=== PATIENT | female | born 1960 | race Caucasian/White ===

== ENCOUNTER 2021-07-23 16:36 | Emergency (ER) | payer OTHER, SELFPAY ==
[2021-07-23 16:52] VITALS: BP 147/65; PULSE 79; RESP 16; TEMP 36.2; O2SAT 97; BMI 27.3
--- NOTE | 2021-07-23 16:56 | DI.RAD.S_ITS ---
PROCEDURE: XR FOOT RT MIN 3V INDICATIONS: bruising and swelling of R great toe TECHNIQUE: 3 views of the foot were acquired. COMPARISON: None. FINDINGS: Bones: Comminuted fracture of the 1st proximal phalange. Fracture lucencies extend into the DIP joint.. Soft tissues: No tibiotalar joint effusion. Achilles tendon appears normal. IMPRESSION: Comminuted, intra-articular 1st proximal phalange fracture. Dictated by: Kristal Stevens MD, PhD on 07/23/2021 at 17:14 Approved by: Kristal Stevens MD, PhD on 07/23/2021 at 17:15
--- NOTE | 2021-07-23 19:39 | ED.LOWEXIN ---
HPI - Extremity Injury (Lower) General Chief Complaint: Extremity Injury, Lower Stated Complaint: Great toe on right foot injury x1 day Time Seen by Provider: 07/23/21 19:30 Source: patient Mode of arrival: Ambulatory History of Present Illness HPI Narrative: 60-year-old female here for evaluation of right great toe pain and discoloration and discomfort. She states yesterday she kicked an object. Sustained an injury afterwards. Has had pain upon walking since then. Has not tried anything for symptoms prior to arrival Related Data Previous Rx's Medication Instructions Recorded hydrocodone 5 mg-acetaminophen 325 1 tab PO Q4-6H PRN #14 tab 07/23/21 mg tablet Review of Systems Musculoskeletal Comments: Pain around right great toe Integumentary/Breasts Comments: Bruising around the right great toe Neurologic Neurologic: Reports system reviewed and no additional complaints, except as documented Patient History Medical History Healthy adult Social History (Updated 07/24/21 @ 01:57 by Kwabena Wu DO) marital status: lives independently: Yes Exam Initial Vital Signs Initial Vital Signs: Vital Signs Temperature 97.1 F L 07/23/21 16:52 Pulse Rate 79 07/23/21 16:52 Respiratory Rate 16 07/23/21 16:52 Blood Pressure 147/65 H 07/23/21 16:52 Pulse Oximetry 97 07/23/21 16:52 Cardio Pulses: dorsalis pedis present on the right Skin Other: Bruising located from the MTP joint distal to the right great toe and some bruising along the 2nd toe as well. There is no breaks in the skin. Neuro Sensory Exam: no sensory deficits noted Extrem Other: Patient with discomfort along the right great toe. The rest of her right foot exam unremarkable Psych Appearance: grossly normal and well kempt Procedures Orthopedic Splinting/Casting Injury #1: Side: right Lower Extremity Injury Location: toe Lower Extremity Immobilizer: post-op shoe Post splinting neuro exam: intact Post splinting vascular exam: intact Placed by: Nursing Course Orders Ordered: ED Orders 07/23/21 16:56 XR foot RT min 3V Stat Vital Signs Vital signs: Vital Signs - 8 hr 07/23/21 20:01 Pulse Rate 65 Respiratory Rate 18 Blood Pressure 147/69 H Pulse Oximetry 99 MDM - Extremity Injury (Lower) MDM Narrative Medical decision making narrative: X-ray shows fracture of the proximal aspect of the right great toe. No breaks in the skin. She has bruising over the area. Consistent with her stated injury. Will provide orthopedic shoe. We also discussed jose raul taping. She was given return precautions and follow-up instructions. She expressed understanding and agreement. Discharge Plan Departure Patient Disposition: Home Clinical Impression: Fracture of toe of right foot Instructions: Toe Fracture, How to Jose Raul Tape Activity Restrictions/Additional Instructions: I do recommend that you keep your foot elevated. You can also keep ice over the area. He can take Tylenol and ibuprofen for discomfort. The orthopedic she was for your comfort with walking. Contact your primary doctor for long-term work related restrictions. Return to the emergency department for any new symptoms. Prescriptions: New hydrocodone-acetaminophen 5-325 mg tablet 1 tab PO Q4-6H PRN (Reason: pain) Qty: 14 0RF Referrals: Zuhair Jane MD [Primary Care Provider] - Stand Alone Forms: Work Release Note
[2021-07-23 20:01] VITALS: BP 147/69; PULSE 65; RESP 18; O2SAT 99
== END 2021-07-23 20:03 | disposition home or self-care (01) ==
PROVIDERS: Emergency Provider Emergency Medicine; PCP Internal Medicine Rheumatology
DX: S92.411A Displaced fracture of proximal phalanx of right great toe, initial encounter for closed fracture (principal); W22.8XXA Striking against or struck by other objects, initial encounter
CPT/HCPCS: 73630; 99283

== ENCOUNTER 2022-02-17 17:15 | Emergency (ER) | payer OTHER, SELFPAY ==
[2022-02-17 17:28] VITALS: BP 163/74; PULSE 64; RESP 18; TEMP 37.1; O2SAT 96
--- NOTE | 2022-02-17 17:40 | DI.CT.S_ITS ---
PROCEDURE: CT HEAD/BRAIN WO CON INDICATIONS: headache/dizziness/nausea TECHNIQUE: Noncontrast 4.5 mm thick angled axial sections acquired from the foramen magnum to the vertex, with coronal and sagittal reformats. For radiation dose reduction, the following was used: automated exposure control, adjustment of mA and/or kV according to patient size. COMPARISON: None. FINDINGS: Image quality: Excellent. CSF spaces: Basal cisterns are patent. No extra-axial fluid collections. Ventricles are normal in size and shape. Brain: No midline shift. No intracranial masses or hemorrhage. Jiang-white matter interface is normal. Skull and face: Calvarium and visualized facial bones are intact, without suspicious lesions. Sinuses: Visualized sinuses and mastoids are clear. IMPRESSION: No acute intracranial abnormality. Dictated by: Marcin Kaur M.D. on 02/17/2022 at 18:02 Approved by: Marcin Kaur M.D. on 02/17/2022 at 18:03
[2022-02-17 18:06] LABS: COVID19 -Nasal RAPID Negative (Negative)
--- NOTE | 2022-02-17 19:44 | ED.HA ---
HPI - Headache General Chief Complaint: Headache Stated Complaint: SEVERE HEADACHE NAUSEA WEAKNESS Time Seen by Provider: 02/17/22 19:42 Mode of arrival: Ambulatory History of Present Illness HPI Narrative: 61-year-old female nonsmoker with history of migraine headaches presents with her in the chief complaint of gradually worsening generalized headache over the course of the day. She states that it has no obvious provocation or radiation but seems to be made better in a dark room. She denies any blurred vision, trouble with speech or extremity numbness, tingling or weakness. She denies any recent trauma or injury. She does not take blood thinners and denies fever, chills or neck pain. She is had no recent dietary or medication change Related Data Previous Rx's Medication Instructions Recorded hydrocodone 5 mg-acetaminophen 325 1 tab PO Q4-6H PRN pain #14 tabs 12/28/21 mg tablet Allergies Allergy/AdvReac Type Severity Reaction Status Date / Time No Known Drug Allergies Allergy Verified 02/17/22 17:30 Patient History Medical History Healthy adult Social History marital status: lives independently: Yes Exam Narrative Exam Narrative: GENERAL: [61] year old patient appears stated age. Well-developed patient, in mild distress. Resting in a dark room rubbing her forehead HEAD: Atraumatic. Normocephalic. No pain over temples EYES: Pupils equal round and reactive. Extraocular motions intact. No scleral icterus. No injection or drainage. ENT: Nose without bleeding, purulent drainage. Throat without erythema, tonsillar hypertrophy or exudate. Airway patent. NECK: Trachea midline. Non tender CARDIOVASCULAR: Regular rate and rhythm without murmurs, gallops, or rubs. RESPIRATORY: Clear to auscultation. Breath sounds equal bilaterally. No wheezes, rales, or rhonchi. GASTROINTESTINAL: Abdomen soft, non-tender, nondistended. EXTREMITIES: No edema or joint tenderness. BACK: Nontender without deformity or crepitance. No flank tenderness. NEURO: AOx3. SKIN: No rash or erythema of visible areas NIH Stroke Scale 1a. LOC: Patient is alert and keenly responsive (0) 1b. LOC Questions: Patient answers both LOC questions accurately (0) 1c. LOC Commands: Patient performs both tasks correctly (0) 2. Best Gaze: Normal (0) 3. Visual: No visual loss (0) 4. Facial palsy: Normal symmetrical movements (0) 5. Motor arm: No drift (0) 6. Motor leg: No drift (0) 7. Limb ataxia: Absent (0) 8. Sensory: Normal (0) 9. Best language: No aphasia; normal (0) 10. Dysarthria: Normal (0) 11. Extinction and inattention: No abnormality (0) NIHSS: 0 Initial Vital Signs Initial Vital Signs: Vital Signs Temperature 98.8 F 02/17/22 17:28 Pulse Rate 64 02/17/22 17:28 Respiratory Rate 18 02/17/22 17:28 Blood Pressure 163/74 H 02/17/22 17:28 Pulse Oximetry 96 02/17/22 17:28 Oxygen Delivery Method 02/17/22 17:28 Course Orders Ordered: Discontinued Medications Diphenhydramine HCl (Diphenhydramine 50 Mg/Ml Vial) 25 mg IV NOW ONE Stop: 02/17/22 20:47 Last Admin: 02/17/22 21:03 Dose: 25 mg Documented By: EB Sodium Chloride (Normal Saline 0.9%) 1,000 mls @ 1,000 mls/hr IV BOLUS ONE Stop: 02/17/22 21:45 Last Admin: 02/17/22 21:02 Dose: 1,000 mls/hr Documented By: EB Ketorolac Tromethamine (Ketorolac 30 Mg/Ml Vial) 15 mg IV NOW ONE Stop: 02/17/22 20:47 Last Admin: 02/17/22 21:02 Dose: 15 mg Documented By: EB Metoclopramide HCl (Metoclopramide 10 Mg/2 Ml Inj) 10 mg IV NOW ONE Stop: 02/17/22 20:47 Last Admin: 02/17/22 21:03 Dose: 10 mg Documented By: EB Ondansetron HCl (Ondansetron 4 Mg Odt Prepack) 1 bottle MISC SEEINSTR ONE Stop: 02/17/22 22:12 Last Admin: 02/17/22 22:33 Dose: 1 bottle Documented By: AP Reevaluation(s) Reevaluation #1: Patient has significant improvement symptoms after above-stated therapies Vital Signs Vital signs: Vital Signs - 8 hr 02/17/22 22:45 Pulse Rate 76 Respiratory Rate 18 Blood Pressure 123/76 Pulse Oximetry 98 Oxygen Delivery Method Room Air MDM - Headache Lab Data Labs: Lab Results 02/17/22 Range/Units 17:40 SARS-CoV-2 (PCR) Negative (Negative) Point of Care Testing Glucose POC [address] scan - head: Radiologist's Impression: [address] [address] [address] Scan Report Signed Patient: Kaye Sexton MR#: [id number] : 1960 Acct:[id number] Age/Sex: 61 / F Date of Service: 02/17/22 Loc: ED Accession Number: [id number] ?? Procedure: CT head/brain wo con Ordering Provider: Evelyne Vanessa D.O. PROCEDURE:? CT HEAD/BRAIN WO CON ? INDICATIONS:? headache/dizziness/nausea ? TECHNIQUE:? Noncontrast 4.5 mm thick angled axial sections acquired from the foramen magnum to the vertex, with coronal and sagittal reformats.? For radiation dose reduction, the following was used:? automated exposure control, adjustment of mA and/or kV according to patient size.? ? COMPARISON:? None. ? FINDINGS:? Image quality:? Excellent.? ? CSF spaces:? Basal cisterns are patent.? No extra-axial fluid collections.? Ventricles are normal in size and shape.? ? Brain:? No midline shift.? No intracranial masses or hemorrhage.? Jiang-white matter interface is normal.? ? Skull and face:? Calvarium and visualized facial bones are intact, without suspicious lesions.? ? Sinuses:? Visualized sinuses and mastoids are clear.? ? IMPRESSION:? No acute intracranial abnormality. ? ? Dictated by: Marcin Kaur M.D. on 02/17/2022 at 18:02 ? ? Approved by: Marcin Kaur M.D. on 02/17/2022 at 18:03? MDM Narrative Medical decision making narrative: Headache considerations include, but not limited to: Subarachnoid hemorrhage, but unlikely as patient denies sudden onset of pain, not worst of life, or neck pain Meningitis considered, but thought unlikely given lack of Brudzinski's, Kernig's sign, altered mental status or fever Giant cell arteritis considered, but thought unlikely given lack of unilateral findings, pain in spiritism, vision change HTN Emergency considered, but thought unlikely given normal vitals Other serious diagnoses considered unlikely given lack of red flag findings such as sudden onset, increasing frequency, immunocompromise, systemic signs (fever, chills, stiff neck, or rash), focal neurologic findings, trauma, blood thinners, etc. Patient's symptoms improved over duration of stay with above-stated therapies. Findings and discharge diagnosis discussed with patient/family followed by verbalization of understanding Return precautions discussed with patient/family whom verbalize understanding. Discharge Plan Departure Patient Disposition: Home Clinical Impression: Headache Instructions: DI for Headache Activity Restrictions/Additional Instructions: *You have been diagnosed with [ Headache ] *What to do: *Take medications as directed *Follow up with your primary care provider in 2-3 days, call for an appointment. Let them know you were seen in the Emergency Department and that we ask that you be seen in follow up *Return to ER if you should have any new, worsening or concerning symptoms, such as [ fever > 101F, neck pain or stiffness, vomiting, confusion, seizure, focal weakness, vision change, speech deficit or other concerning symptoms ] Prescriptions: No Action hydrocodone-acetaminophen 5-325 mg tablet 1 tab PO Q4-6H PRN (Reason: pain) Qty: 14 0RF Referrals: Zuhair Jane MD [Primary Care Provider] - Visit Report Forms: Patient Portal/API
[2022-02-17] MEDS: KETOROLAC 30 MG/ML VIAL 15 MG IV (21:02)
[2022-02-17] MEDS: SODIUM CHLORIDE 0.9% 1,000 ML 1000 ML IV (21:02)
[2022-02-17] MEDS: METOCLOPRAMIDE 10 MG/2 ML INJ IV (21:03)
[2022-02-17] MEDS: diphenhydrAMINE 50 MG/ML VIAL 25 MG IV (21:03)
[2022-02-17] MEDS: ONDANSETRON 4 MG ODT PREPACK 1 BOTTLE MISC (22:33)
[2022-02-17 22:45] VITALS: BP 123/76; PULSE 76; RESP 18; O2SAT 98
== END 2022-02-17 22:46 | disposition home or self-care (01) ==
PROVIDERS: Emergency Medicine; Emergency Provider Emergency Medicine; PCP Internal Medicine Rheumatology
DX: R51.9 Headache, unspecified (principal); R42 Dizziness and giddiness; Z20.822 Contact with and (suspected) exposure to COVID-19
CPT/HCPCS: 36415; 70450; 82962; 87635; 96374; 96375; 99284; C9803; J1200; J1885; J2765

== ENCOUNTER 2023-02-11 09:40 | Emergency (ER) | payer OTHER, SELFPAY ==
[2023-02-11 09:46] VITALS: BP 181/84; PULSE 78; RESP 18; TEMP 36.4; O2SAT 100; BMI 28.2
--- NOTE | 2023-02-11 09:50 | DI.RAD.S_ITS ---
PROCEDURE: XR CHEST 1V INDICATIONS: chest pain TECHNIQUE: One view of the chest was acquired. COMPARISON: None. FINDINGS: Surgical changes and devices: None. Lungs and pleura: Lungs are clear. No pleural effusions or pneumothorax. Mediastinum: Mediastinal contours appear normal. Heart size is normal. Bones and chest wall: No suspicious bony lesions. Overlying soft tissues appear unremarkable. IMPRESSION: No acute cardiopulmonary disease. Dictated by: Dom Montemayor M.D. on 02/11/2023 at 10:26 Approved by: Dom Montemayor M.D. on 02/11/2023 at 10:26
[2023-02-11 10:18] LABS: INR 0.9 (0.9-1.3); Prothrombin Time 10.8 SECONDS (10.1-12.7)
[2023-02-11 10:20] LABS: PTT Partial Thromboplastin Tim 31 SECONDS (26-36)
[2023-02-11 10:21] LABS: Add Manual Diff / Slide Review NO; Basophils Absolute Auto 100 /uL (0-100); Basophils Percent Auto 1.5 % (0-2); Eosinophils Absolute Auto 300 /uL (0-450); Eosinophils Percent Auto 5.2 % (2-4); Hematocrit 39.2 % (36-46); Hemoglobin 13.5 g/dL (12.0-16.0); Lymphocytes Absolute Auto 1700 /uL (1100-4500); Lymphocytes Percent Auto 32.9 % (25-40); Mean Corpuscular HGB Conc 34.5 % (30-36); Mean Corpuscular Hemoglobin 31.7 PG (26-34); Mean Corpuscular Volume 92.1 fL (80-100); Monocytes Absolute Auto 500 /uL (0-900); Monocytes Percent Auto 8.5 % (3-14); Neutrophils Absolute Auto 2800 /uL (1500-7000); Neutrophils Percent Auto 51.9 % (50-75); Platelet Count 270 X10^3/uL (150-400); Red Blood Cell Count 4.26 X10^6/uL (4.0-5.2); Red Cell Distribution Width 12.7 % (11.6-14.8); White Blood Cell Count 5.3 X10^3/uL (4.5-11.0)
[2023-02-11 10:23] LABS: Alanine Aminotransferase 23 IU/L (<35); Albumin 4.4 g/dL (3.5-5.0); Albumin Globulin Ratio 1.3 (1.0-2.8); Alkaline Phosphatase 69 U/L (38-126); Aspartate Aminotransferase 24 IU/L (14-36); BUN Creatinine Ratio 23.9 (6-22); Bilirubin Total 0.3 mg/dL (0.2-1.3); Blood Urea Nitrogen 16 mg/dL (7-17); Carbon Dioxide 26 mmol/L (22-32); Chloride 104 mmol/L (98-107); Creatine Kinase 58 U/L (30-135); Estimated Glomerular Filt Rate > 60 mL/min (>60); Globulin 3.3 g/dL (1.7-4.1); Glucose 99 mg/dL (80-110); HEMOLYSIS < 15 (0-50); Lipase 365 U/L (23-300); Magnesium 2.2 mg/dL (1.6-2.3); Potassium 4.1 mmol/L (3.4-5.1); Sodium 136 mmol/L (137-145); Total Protein 7.7 g/dL (6.3-8.2)
[2023-02-11] MEDS: KETOROLAC 30 MG/ML VIAL 15 MG IV (10:25)
[2023-02-11] MEDS: ONDANSETRON 4 MG/2 ML INJ IV (10:25)
[2023-02-11] MEDS: SODIUM CHLORIDE 0.9% 1,000 ML 1000 ML IV (10:25)
[2023-02-11 10:32] VITALS: PULSE 58; RESP 12; O2SAT 98
[2023-02-11 10:35] LABS: Troponin I < 0.012 ng/mL (0.01-0.034)
[2023-02-11 10:54] LABS: TSH w/ Reflex to FT4 0.62 uIU/mL (0.47-4.68)
[2023-02-11 10:57] LABS: COVID19 -Nasal RAPID Negative (Negative)
--- NOTE | 2023-02-11 10:57 | ED_ITS ---
HPI - Headache General Chief Complaint: Headache Stated Complaint: Headache since yesterday Time Seen by Provider: 02/11/23 10:48 Source: patient Mode of arrival: Ambulatory Limitations: no limitations History of Present Illness HPI Narrative: This is a 62-year-old female with history of migraines. Patient presents with complaint of no headache, worse than her typical, she states she had nausea, she felt like she would palpitations in the chest sort of dizzy with blurry vision. Patient states it was worse than what she is typically had in the past. She did try her sumatriptan which was minimally helpful. Her checked her blood pressure was 137/40 with a pulse in the 60s. Patient states typically her migraines are tolerable with the sumatriptan. She states she is feeling much better at this time. She describes no double vision. No chest pain, no shortness of breath, no vomiting just nausea. No issues with bowel movements or urination, no incontinence. No dysuria urgency or frequency. No numbness, tingling of her extremities. Patient states she has seen primary care but never seen a neurologist. She is had and prior hysterectomy. No tobacco, rare alcohol, no illicit. She follows with [facility] for primary care. Patient is also accompanied by her . Related Data Previous Rx's Medication Instructions Recorded hydrocodone 5 mg-acetaminophen 325 1 tab PO Q4-6H PRN pain #14 tabs 12/28/21 mg tablet Allergies Allergy/AdvReac Type Severity Reaction Status Date / Time No Known Drug Allergies Allergy Verified 02/17/22 17:30 Review of Systems Review of Systems ROS Unobtainable: All systems reviewed & are unremarkable except as noted in HPI and below Patient History Medical History Healthy adult Social History marital status: lives independently: Yes Smoking Status: Never smoker Smoking Status: Never smoker alcohol intake frequency: 0-2 drinks per day Substance Use Type: does not use Exam Narrative Exam Narrative: GEN: well nourished, well appearing female, alert and oriented x 3, patient appears to be in mild distress. HEENT: Atraumatic, pupils are equal round reactive to light, extraocular movements are intact, nares are clear, there is no conjunctival pallor. Throat is clear without any exudates, erythema, tonsillar enlargement or uvular deviation HEART: Regular rate and rhythm without murmur, clicks, rubs. Pulses are equal in upper and lower extremities LUNGS:Lungs clear to auscultation, no wheezes, rales, crackles, chest moves symmetrically ABD:bowel sounds normal, soft, non-tender, no guarding, rebound, rigidity, no masses noted, no hepatosplenomegaly :No CVA tenderness MSCL: Non-tender, no muscle atrophy, muscles strength 5/5 upper and lower extremities, full range of motion, normal gait NEURO:CN 2-12 intact, sensation normal SKIN: No rash, erythema or other skin changes Initial Vital Signs Initial Vital Signs: Vital Signs Temperature 97.6 F 02/11/23 09:46 Pulse Rate 78 02/11/23 09:46 Respiratory Rate 18 02/11/23 09:46 Blood Pressure 181/84 H 02/11/23 09:46 Pulse Oximetry 100 02/11/23 09:46 Oxygen Delivery Method Room Air 02/11/23 09:46 Course Orders Ordered: Discontinued Medications Aspirin (Aspirin 81 Mg Chew Tab) 324 mg PO NOW ONE Stop: 02/11/23 09:51 Last Admin: 02/11/23 10:49 Dose: Not Given Documented By: EDILIA Sodium Chloride (Normal Saline 0.9%) 1,000 mls @ 1,000 mls/hr IV BOLUS ONE Stop: 02/11/23 11:22 Last Infusion: 02/11/23 11:29 Dose: 0 mls/hr Documented By: Admin: 02/11/23 10:25 Dose: 1,000 mls/hr Documented By: JAVID Ketorolac Tromethamine (Ketorolac 30 Mg/Ml Vial) 15 mg IV NOW ONE Stop: 02/11/23 10:01 Last Admin: 02/11/23 10:25 Dose: 15 mg Documented By: JAVID Ondansetron HCl (Ondansetron 4 Mg/2 Ml Inj) 4 mg IV NOW ONE Stop: 02/11/23 10:01 Last Admin: 02/11/23 10:25 Dose: 4 mg Documented By: JAVID Vital Signs Vital signs: Vital Signs - 8 hr 02/11/23 11:30 02/11/23 11:30 02/11/23 12:00 Pulse Rate 59 L Respiratory Rate 24 Blood Pressure 143/70 H 156/79 H Pulse Oximetry 98 Oxygen Delivery Method 02/11/23 12:00 02/11/23 12:19 02/11/23 12:19 Pulse Rate 56 L 56 L Respiratory Rate 17 20 Blood Pressure 143/65 H Pulse Oximetry 99 98 Oxygen Delivery Method Room Air MDM - Headache Lab Data 02/11/23 09:50 02/11/23 09:50 Labs: Lab Results 02/11/23 02/11/23 02/11/23 Range/Units 09:50 09:50 09:50 WBC 5.3 (4.5-11.0) X10^3/uL RBC 4.26 (4.0-5.2) X10^6/uL Hgb 13.5 (12.0-16.0) g/dL Hct 39.2 (36-46) % MCV 92.1 (80-100) fL MCH 31.7 (26-34) PG MCHC 34.5 (30-36) % RDW 12.7 (11.6-14.8) % Plt Count 270 (150-400) X10^3/uL Neut % (Auto) 51.9 (50-75) % Lymph % (Auto) 32.9 (25-40) % [place] % (Auto) 8.5 (3-14) % Eos % (Auto) 5.2 H (2-4) % Baso % (Auto) 1.5 (0-2) % Neut # (Auto) 2800 (8650-3751) /uL Lymph # (Auto) 1700 (8794-9193) /uL [place] # (Auto) 500 (0-900) /uL Eos # (Auto) 300 (0-450) /uL Baso # (Auto) 100 (0-100) /uL PT 10.8 (10.1-12.7) SECONDS INR 0.9 (0.9-1.3) APTT 31 (26-36) SECONDS Sodium 136 L (137-145) mmol/L Potassium 4.1 (3.4-5.1) mmol/L Chloride 104 (98-107) mmol/L Carbon Dioxide 26 (22-32) mmol/L BUN 16 (7-17) mg/dL Creatinine 0.67 (0.52-1.04) mg/dL Estimated GFR > 60 (>60) mL/min BUN/Creatinine Ratio 23.9 H (6-22) Glucose 99 (80-110) mg/dL Calcium 9.0 (8.4-10.2) mg/dL Magnesium 2.2 (1.6-2.3) mg/dL Total Bilirubin 0.3 (0.2-1.3) mg/dL AST 24 (14-36) IU/L ALT 23 (<35) IU/L Alkaline Phosphatase 69 (38-126) U/L Total Creatine Kinase 58 (30-135) U/L Troponin I < 0.012 (0.01-0.034) ng/mL Total Protein 7.7 (6.3-8.2) g/dL Albumin 4.4 (3.5-5.0) g/dL Globulin 3.3 (1.7-4.1) g/dL Albumin/Globulin Ratio 1.3 (1.0-2.8) Lipase 365 H (23-300) U/L TSH (0.47-4.68) uIU/mL SARS-CoV-2 (PCR) (Negative) 02/11/23 02/11/23 Range/Units 09:55 10:06 WBC (4.5-11.0) X10^3/uL RBC (4.0-5.2) X10^6/uL Hgb (12.0-16.0) g/dL Hct (36-46) % MCV (80-100) fL MCH (26-34) PG MCHC (30-36) % RDW (11.6-14.8) % Plt Count (150-400) X10^3/uL Neut % (Auto) (50-75) % Lymph % (Auto) (25-40) % [place] % (Auto) (3-14) % Eos % (Auto) (2-4) % Baso % (Auto) (0-2) % Neut # (Auto) (1214-1396) /uL Lymph # (Auto) (0674-5070) /uL [place] # (Auto) (0-900) /uL Eos # (Auto) (0-450) /uL Baso # (Auto) (0-100) /uL PT (10.1-12.7) SECONDS INR (0.9-1.3) APTT (26-36) SECONDS Sodium (137-145) mmol/L Potassium (3.4-5.1) mmol/L Chloride (98-107) mmol/L Carbon Dioxide (22-32) mmol/L BUN (7-17) mg/dL Creatinine (0.52-1.04) mg/dL Estimated GFR (>60) mL/min BUN/Creatinine Ratio (6-22) Glucose (80-110) mg/dL Calcium (8.4-10.2) mg/dL Magnesium (1.6-2.3) mg/dL Total Bilirubin (0.2-1.3) mg/dL AST (14-36) IU/L ALT (<35) IU/L Alkaline Phosphatase (38-126) U/L Total Creatine Kinase (30-135) U/L Troponin I (0.01-0.034) ng/mL Total Protein (6.3-8.2) g/dL Albumin (3.5-5.0) g/dL Globulin (1.7-4.1) g/dL Albumin/Globulin Ratio (1.0-2.8) Lipase (23-300) U/L TSH 0.62 (0.47-4.68) uIU/mL SARS-CoV-2 (PCR) Negative (Negative) ECG Data Attestation: I personally reviewed and interpreted this ECG as follows: Interpretation: Sinus bradycardia rate of 58 AR 148 QRS is 78 QTC [address]. No acute ST elevation depression noted. MDM Narrative Medical decision making narrative: This is a 62-year-old female who presents with complaint of headache since yest erday she is had migraines as a been a little bit more intense than her typical, patient also had some palpitations which he states are atypical. Patient checked her pulse and blood pressure when that was occurring states systolic was 132, heart rate was in the 60s. Patient tried her sumatriptan without much help. She has had had head CT but a year ago in January of 2022 which was negative. CBC, coags, CMP, troponin, TSH and lipase are negative. Chest x- ray and COVID were negative. Patient does not have any acute neurologic changes that make me feel she necessitates repeat CT imaging of her brain. She is feeling much improved after fluids and Toradol and a dose of Zofran. Discussed with patient she feels comfortable to return home. Discussed follow-up, with primary care and if having a new or change from her usual headaches should follow up with Neurology. We did discuss return precautions patient has been felt comfortable with this plan. Discharge Plan Departure Patient Disposition: Home Clinical Impression: Migraine, Palpitations Instructions: DI for Migraine Activity Restrictions/Additional Instructions: Please follow-up with your physician for recheck. I would recommend follow up with, referral is included below but can take some time. Please call to set up an appointment. You may continue your home medications as prescribed. You can take Tylenol up to a 1000 mg every 6 hours as needed for headaches. Please return for rapidly worsening or increasingly severe headaches, new vision changes, new numbness, tingling or weakness, facial droop, difficulty with speech, passing out or other new or concerning changes Prescriptions: No Action hydrocodone-acetaminophen 5-325 mg tablet 1 tab PO Q4-6H PRN (Reason: pain) Qty: 14 0RF Referrals: Christiano Bass MD [Non-Staff] - Zuhair Jane MD [Primary Care Provider] - Stand Alone Forms: Patient Portal/API
[2023-02-11 11:00] VITALS: BP 145/80; PULSE 61; RESP 20; O2SAT 98
[2023-02-11 11:30] VITALS: BP 143/70; PULSE 59; RESP 24; O2SAT 98
[2023-02-11 12:00] VITALS: BP 156/79; PULSE 56; RESP 17; O2SAT 99
[2023-02-11 12:19] VITALS: BP 143/65; PULSE 56; RESP 20; O2SAT 98
== END 2023-02-11 12:30 | disposition home or self-care (01) ==
PROVIDERS: Emergency Provider Emergency Medicine; PCP Internal Medicine Rheumatology
DX: G43.109 Migraine with aura, not intractable, without status migrainosus (principal); R00.2 Palpitations; Z20.822 Contact with and (suspected) exposure to COVID-19
CPT/HCPCS: 36415; 71045; 80053; 82550; 83690; 83735; 84443; 84484; 85025; 85610; 85730; 87635; 93005; 96361; 96374; 96375; 99284; C9803; J1885; J2405